=== PATIENT | female | born 1970 | race Caucasian/White ===

== ENCOUNTER 2022-03-16 09:00 | Inpatient (IN) | payer OTHER ==
[~2022-03-16] VITALS: Ht 157.5 cm; Wt 137.6 kg
[~2022-03-16 09:00] MED LIST: BIRTH CONTROL PILL; BYSTOLIC10 MG PO; CLONAZEPAM1 MG PO; CYTOMEL25 MCG; HYDROCHLOROTHIA25 MG; LEVOTHYROXINE112 MCG PO; MECLIZINE HCL12.5 MG PO; NEXIUM20 MG PO
[2022-03-16 10:04] VITALS: BP 136/67
[2022-03-16 10:32] LABS: BASOPHILS # (AUTO) 0.1 (0.0-0.1); BASOPHILS % 0.4 % (0.0-1.0); EOSINOPHILS % 0.2 % (0.0-6.0); HEMATOCRIT 41.1 % (34.2-44.1); HEMOGLOBIN 12.7 g/dL (12.0-16.0); LYMPHOCYTES % 7.1 % (18.0-39.1); MEAN CORPUSCULAR HGB CONC 30.9 g/dL (31-35); MEAN CORPUSCULAR VOLUME 90.5 fL (81-99); MONOCYTES % 6.7 % (4.4-11.3); NEUTROPHILS # (AUTO) 12.3 (2.1-6.9); NEUTROPHILS % 85.3 % (38.7-80.0); PLATELET COUNT 189 x10e3/uL (140-360); RED BLOOD COUNT 4.54 x10e6/uL (3.6-5.1); RED CELL DISTRIBUTION WIDTH 13.5 % (11.7-14.4)
[2022-03-16 10:50] LABS: ALBUMIN 2.2 g/dL (3.5-5.0); ALBUMIN/GLOBULIN RATIO 0.5 (0.8-2.0); ANION GAP 16.9 mmol/L (8-16); CALCIUM 8.1 mg/dL (8.4-10.2); CREATININE, SERUM 1.77 mg/dL (0.57-1.11); POTASSIUM 3.9 mmol/L (3.5-5.1)
[2022-03-16 10:59] VITALS: BP 136/67
[2022-03-16 11:49] VITALS: BP 127/72
[2022-03-16] MEDS: ONDANSETRON HCL INJ 2MG/ML 2ML 2 MG/ML VIAL IV PRN ×2 (12:20→16:17)
[2022-03-16 16:00] VITALS: BP 138/84
[2022-03-16] MEDS ORDERED: SODIUM CHLORIDE 0.9% 1000ML 1,000 ML ONE (18:20)
[2022-03-16] MEDS ORDERED: LEVOTHYROXINE200 MCG PO (20:12)
[2022-03-16] MEDS ORDERED: DIOVAN160 MG PO (20:13)
[2022-03-16] MEDS ORDERED: OMEPRAZOLE40 MG PO (20:13)
[2022-03-16] MEDS ORDERED: HYDROCHLOROTHIA25 MG PO (20:13)
[2022-03-16] MEDS ORDERED: CELEBREX100 MG PO (20:14)
[2022-03-16] MEDS ORDERED: TIZANIDINE HCL4 M1 PO (20:14)
[2022-03-16] MEDS ORDERED: DOCUSATE SODIUM 100 MG CAP PO PRN (20:45)
[2022-03-16] MEDS ORDERED: MELATONIN 3 MG TAB PO PRN (20:45)
[2022-03-16 21:09] VITALS: BP 139/91
[2022-03-16] MEDS: PROMETHAZINE 12.5MG/ NACL 0.9% 12.5 MG/50 ML BAG IV PRN (21:58)
[2022-03-16] MEDS ORDERED: SODIUM BICARBONATE 8.4% 50 ML VIAL ONE (22:22)
[2022-03-16] MEDS ORDERED: SODIUM CHLORIDE 0.45% 1,000 ML ONE ×2 (22:24→22:33)
[2022-03-16] MEDS: SODIUM BICARBONATE 8.4% 50 ML in SODIUM CHLORIDE 0.45% 1,000 ML IV SCH (22:47)
[2022-03-16] MEDS: ACETAMINOPHEN 325 MG TAB PO PRN (22:55)
[2022-03-17] VITALS (7 sets, daily range): BP systolic 91–130; BP diastolic 67–79
[2022-03-17 06:38] LABS: BASOPHILS # (AUTO) 0.1 (0.0-0.1); BASOPHILS % 0.7 % (0.0-1.0); EOSINOPHILS % 0.3 % (0.0-6.0); HEMATOCRIT 37.5 % (34.2-44.1); HEMOGLOBIN 11.4 g/dL (12.0-16.0); LYMPHOCYTES # (AUTO) 1.1 (1.0-3.2); LYMPHOCYTES % 11.9 % (18.0-39.1); MEAN CORPUSCULAR HEMOGLOBIN 27.9 pg (28-32); MEAN CORPUSCULAR HGB CONC 30.4 g/dL (31-35); MEAN CORPUSCULAR VOLUME 91.7 fL (81-99); MONOCYTES # (AUTO) 0.8 (0.2-0.8); MONOCYTES % 8.3 % (4.4-11.3); NEUTROPHILS # (AUTO) 7.2 (2.1-6.9); NEUTROPHILS % 78.4 % (38.7-80.0); PLATELET COUNT 202 x10e3/uL (140-360); RED BLOOD COUNT 4.09 x10e6/uL (3.6-5.1); RED CELL DISTRIBUTION WIDTH 14.1 % (11.7-14.4)
[2022-03-17 07:05] LABS: ANION GAP 14.4 mmol/L (8-16); CREATININE, SERUM 1.58 mg/dL (0.57-1.11); MAGNESIUM 1.7 MG/DL (1.3-2.1); PHOSPHORUS 2.5 MG/DL (2.3-4.7); POTASSIUM 3.4 mmol/L (3.5-5.1)
[2022-03-17] MEDS: SODIUM BICARBONATE 8.4% 50 ML in SODIUM CHLORIDE 0.45% 1,000 ML IV SCH ×2 (07:15→17:05)
[2022-03-17] MEDS: LEVOTHYROXINE SODIUM 100 MCG TAB PO SCH (08:30)
[2022-03-17] MEDS: PANTOPRAZOLE SOD 40 MG TABEC PO SCH (08:30)
[2022-03-17] MEDS: TIZANIDINE HCL 4 MG TAB PO SCH ×2 (08:30→16:02)
[2022-03-17] MEDS ORDERED: CHLORASEPTIC SPRAY 177 ML BTL MM PRN (15:15)
[2022-03-17] MEDS: PROMETHAZINE 12.5MG/ NACL 0.9% 12.5 MG/50 ML BAG IV PRN ×2 (15:46→21:29)
[2022-03-17] MEDS: ENOXAPARIN SOD INJ 40 MG/0.4 ML SYR SC SCH (17:05)
[2022-03-17] MEDS: LORATADINE 10 MG TAB PO SCH (21:30)
[2022-03-18] MEDS: ONDANSETRON HCL INJ 2MG/ML 2ML 2 MG/ML VIAL IV PRN (01:10)
[2022-03-18] MEDS: ACETAMINOPHEN 325 MG TAB PO PRN ×2 (01:11→14:10)
[2022-03-18 04:00] VITALS: BP 140/90
[2022-03-18] MEDS: PROMETHAZINE 12.5MG/ NACL 0.9% 12.5 MG/50 ML BAG IV PRN ×2 (05:17→14:10)
[2022-03-18] MEDS: SODIUM BICARBONATE 8.4% 50 ML in SODIUM CHLORIDE 0.45% 1,000 ML IV SCH ×2 (05:18→14:45)
[2022-03-18 05:52] LABS: BASOPHILS # (AUTO) 0.1 (0.0-0.1); BASOPHILS % 0.9 % (0.0-1.0); EOSINOPHILS # (AUTO) 0.1 (0.0-0.4); EOSINOPHILS % 1.2 % (0.0-6.0); HEMATOCRIT 32.2 % (34.2-44.1); HEMOGLOBIN 10.6 g/dL (12.0-16.0); LYMPHOCYTES # (AUTO) 1.8 (1.0-3.2); LYMPHOCYTES % 22.9 % (18.0-39.1); MEAN CORPUSCULAR HEMOGLOBIN 27.6 pg (28-32); MEAN CORPUSCULAR HGB CONC 32.9 g/dL (31-35); MEAN CORPUSCULAR VOLUME 83.9 fL (81-99); MONOCYTES # (AUTO) 0.9 (0.2-0.8); MONOCYTES % 10.7 % (4.4-11.3); NEUTROPHILS # (AUTO) 5.1 (2.1-6.9); NEUTROPHILS % 63.7 % (38.7-80.0); PLATELET COUNT 218 x10e3/uL (140-360); RED BLOOD COUNT 3.84 x10e6/uL (3.6-5.1); RED CELL DISTRIBUTION WIDTH 14.4 % (11.7-14.4)
[2022-03-18 06:16] LABS: ANION GAP 14.1 mmol/L (8-16); CREATININE, SERUM 1.5 mg/dL (0.57-1.11); MAGNESIUM 1.9 MG/DL (1.3-2.1); PHOSPHORUS 2.7 MG/DL (2.3-4.7); POTASSIUM 3.1 mmol/L (3.5-5.1)
[2022-03-18 08:00] VITALS: BP 146/91
[2022-03-18 08:35] VITALS: BP 140/90
[2022-03-18] MEDS ORDERED: POTASSIUM CHLORIDE 20 MEQ TAB CR PO STA (08:36)
[2022-03-18] MEDS: LEVOTHYROXINE SODIUM 100 MCG TAB PO SCH (09:04)
[2022-03-18] MEDS: TIZANIDINE HCL 4 MG TAB PO SCH ×2 (09:04→16:23)
[2022-03-18] MEDS: PANTOPRAZOLE SOD 40 MG TABEC PO SCH (09:04)
[2022-03-18 11:57] VITALS: BP 129/62
[2022-03-18] MEDS ORDERED: MAGNESIUM SULFATE 2GM/50ML 50 ML IV ONE (16:00)
[2022-03-18] MEDS: ENOXAPARIN SOD INJ 40 MG/0.4 ML SYR SC SCH (16:23)
[2022-03-18] MEDS: LACTATED RINGER'S 1,000 ML INJ SCH (16:25)
[2022-03-18 16:26] VITALS: BP 136/72
[2022-03-18 17:44] LABS: CREATININE,URINE RANDOM 45.75 mg/dL (47-110); SODIUM,URINE 24 mmol/L; TOTAL PROTEIN, URINE 22.5 mg/dL (1-14)
[2022-03-18 18:11] LABS: EOSINOPHIL SMEAR,URINE NONE SEEN (NONE SEEN)
[2022-03-18 20:00] VITALS: BP_SYST 120; BP_SYST 136; BP_DIAS 69; BP_DIAS 72
[2022-03-18] MEDS: LORATADINE 10 MG TAB PO SCH (21:45)
[2022-03-19] VITALS: BP 139/83
[2022-03-19] MEDS: PROMETHAZINE 12.5MG/ NACL 0.9% 12.5 MG/50 ML BAG IV PRN (01:08)
[2022-03-19] MEDS: LACTATED RINGER'S 1,000 ML INJ SCH ×2 (01:10→11:45)
[2022-03-19 04:00] VITALS: BP 162/79
[2022-03-19 07:05] LABS: ALBUMIN/GLOBULIN RATIO 0.5 (0.8-2.0); ANION GAP 14.2 mmol/L (8-16); CALCIUM 8.2 mg/dL (8.4-10.2); CREATININE, SERUM 1.31 mg/dL (0.57-1.11); PHOSPHORUS 2.9 MG/DL (2.3-4.7); POTASSIUM 3.2 mmol/L (3.5-5.1)
[2022-03-19 08:30] VITALS: BP 148/84
[2022-03-19] MEDS: LEVOTHYROXINE SODIUM 100 MCG TAB PO SCH (08:42)
[2022-03-19] MEDS: PANTOPRAZOLE SOD 40 MG TABEC PO SCH (08:42)
[2022-03-19] MEDS: TIZANIDINE HCL 4 MG TAB PO SCH (08:42)
[2022-03-19 09:00] VITALS: BP 148/84
[2022-03-19] MEDS ORDERED: POTASSIUM CHLORIDE 20 MEQ TAB CR PO NR (09:45)
[2022-03-19] MEDS ORDERED: Chloraseptic MM (10:03)
[2022-03-19] MEDS ORDERED: ONDANSETRON ODT4 MG PO (10:03)
[2022-03-19] MEDS ORDERED: CEPHALEXIN500 MG PO (10:03)
[2022-03-19] MEDS ORDERED: LORATADINE10 MG PO (10:03)
[2022-03-19] MEDS ORDERED: POTASSIUM CHLORIDE 10MEQ EA PO ONE (10:45)
== END 2022-03-19 12:00 | disposition home or self-care (01) | DRG 872 ==
LOC: MED/SURG2 09:00
PROVIDERS: ADMIT Internal Medicine; ATTEND Internal Medicine
DX: A41.9 Sepsis, unspecified organism (principal); N39.0 Urinary tract infection, site not specified; N17.9 Acute kidney failure, unspecified; E03.9 Hypothyroidism, unspecified; J02.0 Streptococcal pharyngitis; E87.6 Hypokalemia; K21.9 Gastro-esophageal reflux disease without esophagitis; I10 Essential (primary) hypertension; Z82.49 Family history of ischemic heart disease and other diseases of the circulatory system; Z80.0 Family history of malignant neoplasm of digestive organs
CPT/HCPCS: 36415; 80048; 80053; 81015; 82570; 83605; 83735; 84100; 84156; 84300; 85025; 87086; J0696; J1650; J2405; J2550; J3475; J7030; J7121